=== PATIENT | female | born 1965 | race Caucasian/White ===

== ENCOUNTER → 2020-04-11 | Outpatient (CLI) | payer MEDICARE ==
[~2020-04-11] MED LIST: FERR-51 PO; FOLI-17 PO; FURO20TA3 PO; LACT20SO13 PO; LIDOCAINE 1%, 10ML ONE; MAGN400T50 PO; MULT1TAB60 PO; PANT40TA5 PO; PROP10TA16 NG; SPIR25TA PO; THIA100T67 PO
== END | disposition home or self-care (01) ==
LOC: RAD 09:19
PROVIDERS: ATTEND Family Medicine
DX: K72.90 Hepatic failure, unspecified without coma (principal); G93.40 Encephalopathy, unspecified
CPT/HCPCS: 49083